=== PATIENT | female | born 1985 | race Caucasian/White ===

== ENCOUNTER 2019-06-28 06:19 | Inpatient (IN) | payer OTHER ==
[2019-06-28] MEDS ORDERED: TERBUTALINE 1 MG/ML VIAL SQ PRN (06:27)
[2019-06-28] MEDS ORDERED: OXYTOCIN 10 UNIT/ML 1 ML VIAL IM PRN (06:27)
[2019-06-28] MEDS ORDERED: LIDOCAINE 0.5% (PF) 5 MG/ML (50 ML SDV) SQ PRN (06:27)
[2019-06-28] MEDS ORDERED: PENICILLIN G POTASSIUM 5,000,000 UNIT in DEXTROSE 5% IN WATER 100 ML IVPB STA ×2 (06:27)
[2019-06-28] MEDS ORDERED: METHYLERGONOVINE 0.2 MG/ML 1 ML AMP IM PRN (06:27)
[2019-06-28] MEDS ORDERED: CARBOPROST TROMETHAMINE 250 MCG/ML 1 ML AMP IM PRN (06:27)
[2019-06-28] MEDS: LACTATED RINGERS 1,000 ML IV SCH ×2 (06:29→12:40)
[2019-06-28 06:35] VITALS: BMI 29.1
[2019-06-28 06:41] LABS: Basophils # (A) 0.2 k/uL (0-0.2); Basophils % (A) 1 %; Eosinophils # (A) 0.2 k/uL (0-0.7); Eosinophils % (A) 1 %; HCT 36.9 % (34.0-46.0); HGB 12.9 gm/dL (11.4-16.0); Lymphocytes # (A) 1.8 k/uL (1.0-4.8); Lymphocytes % (A) 12 %; MCH 31.9 pg (25.0-35.0); Mean Platelet Volume 6.9; Monocytes # (A) 0.8 k/uL (0-1.0); Monocytes % (A) 5 %; Neutrophils % (A) 78 %; Platelet Count 295 k/uL (150-450); RBC 4.06 m/uL (3.80-5.40); RDW 14.6 % (11.5-15.5); WBC 15.5 k/uL (3.8-10.6)
[2019-06-28] MEDS: OXYTOCIN 30 UNITS/500 ML NS 30 UNIT in SALINE 1 500ML.BAG IV SCH (06:58)
[2019-06-28] MEDS: PENICILLIN G POTASSIUM 2,500,000 UNIT in DEXTROSE 5% IN WATER 100 ML IVPB SCH ×4 (11:05→15:57)
--- NOTE | 2019-06-28 12:30 | P.HPOB ---
History of Present Illness H&P Date: 06/28/19 This is a 34-year-old white female 1 para 0 EDC was 06/25/2019 at 40-3/7 weeks' gestation. Patient presented this morning for induction for postdates with reasonably favorable cervix. Fetus is been active throughout the . She denied fluid leakage or vaginal bleeding. Past medical history is significant for anxiety. Past surgical history is negative. Current medications vitamins daily, Claritin 10 mg daily as needed. Family history significant for hypertension and diabetes. Social history patient is , she has never been a smoker, she works at a local [employer]. history blood type B positive, rubella status immune. VDRL testing, ur ine culture, hepatitis B surface antigen, HIV testing, gonorrhea and chlamydia cultures all negative. One-hour Glucola 110, group B strep cultures positive. On exam this is a pleasant white female, 5 foot 7 inches, 186 pounds, blood pressure 128/77 on admission. Vital signs are stable and she is afebrile. General physical exam is within normal limits. Cervix on admission is 3 cm dilated, 70% effaced, -2 station, vertex presentation, soft, slightly posterior. Artificial amniorrhexis reveals light meconium-stained fluid. Penicillin G prophylaxis has already been instituted. heart rate is consistent with reactive NST. Impression: 40-3/7 weeks intrauterine , meconium-stained fluid, positive group B strep cultures. Here for induction of labor. Plan: Continue penicillin G prophylaxis per hospital protocol. Continue oxytocin augmentation per hospital protocol. Continue close maternal and surveillance. Analgesic options have been reviewed with the patient. A nticipate normal spontaneous vaginal delivery. Review of Systems Constitutional: Reports as per HPI Past Medical History Past Medical History: No Reported History History of Any Multi-Drug Resistant Organisms: None Reported Past Surgical History: No Surgical Hx Reported Past Anesthesia/Blood Transfusion Reactions: No Reported Reaction Past Psychological History: No Psychological Hx Reported, Anxiety Smoking Status: Never smoker - Past Family History Father Family Medical History: No Reported History Medications and Allergies Home Medications Medication Instructions Recorded Confirmed Type 78/Iron/Folate 1/Dha 1 tab PO ONCE 06/28/19 06/28/19 History [Prenate Dha Softgel] Allergies Allergy/AdvReac Type Severity Reaction Status Date / Time No Known Allergies Allergy Verified 06/28/19 06:26 Exam Vital Signs Temp Pulse Resp BP Pulse Ox 06/28/19 06:24 97.8 F 111 H 16 128/77 98 Intake and Output 06/27/19 06/28/19 06/28/19 22:59 06:59 14:59 Other: Weight 84.368 kg See dictation under HPI please Results Result Diagrams: 06/28/19 06:35 Abnormal Lab Results - Last 24 Hours (Table) 06/28/19 Range/Units 06:35 WBC 15.5 H (3.8-10.6) k/uL Neutrophils # 12.0 H (1.3-7.7) k/uL Assessment and Plan Assessment: 40-3/7 weeks intrauterine , meconium-stained fluid, positive group B strep cultures. Here for elective induction of labor. Plan: Continue penicillin G per hospital protocol. Continue oxytocin per hospital protocol. Close maternal and surveillance. Anticipating normal spontaneous vaginal delivery. Time with Patient: Less than 30
[2019-06-28] MEDS ORDERED: ROPIVACAINE 100 MG, fentaNYL (PF) 200 MCG in SODIUM CHLORIDE 0.9% 76 ML EPIDURAL ONE (13:16)
[2019-06-28] MEDS ORDERED: CITRIC ACID-SODIUM CITRATE 15 ML CUP PO ONE (17:37)
[2019-06-28] MEDS ORDERED: PHENYLEPHRINE-0.9% NACL SYG 1 MG/10 ML SYRINGE ONE (17:47)
[2019-06-28] MEDS ORDERED: OXYTOCIN 10 UNIT/ML 1 ML VIAL ONE (17:47)
[2019-06-28] MEDS ORDERED: ONDANSETRON 4 MG/2 ML VIAL ONE (17:47)
[2019-06-28] MEDS ORDERED: KETOROLAC 30 MG/ML 1 ML VIAL ONE (17:47)
[2019-06-28] MEDS ORDERED: NALBUPHINE 10 MG/ML (1 ML AMP) ONE (17:47)
[2019-06-28] MEDS ORDERED: MORPHINE SULFATE (PF) 0.3 MG/0.3 ML SYR ONE (17:47)
[2019-06-28] MEDS ORDERED: KETOROLAC 30 MG/ML 1 ML VIAL IVP PRN (18:34)
--- NOTE | 2019-06-28 18:34 | P.OP ---
Date of Procedure: 06/28/19 Preoperative Diagnosis: Arrest of dilatation and descent, 40-3/7 weeks' gestation, meconium-stained fluid Postoperative Diagnosis: Liveborn female , right occiput transverse position Procedure(s) Performed: Primary low transverse section Anesthesia: epidural Surgeon: Meseret Tavares Lead Care Manager #1: Germán Araya Estimated Blood Loss (ml): 600 IV fluids (ml): 1,500 Urine output (ml): 300 Pathology: none sent Condition: stable Disposition: PACU Operative Findings: Liveborn female , 8 lbs. 2 oz., 3690 g, right occiput transverse Description of Procedure: Patient is brought to the operating suite where the previously placed epidural analgesia is topped off. She's placed in the dorsal supine position with left lateral uterine displacement. Colon catheter placed to direct drainage. The appropriate timeout is performed to assure proper patient and procedural identification. 2 g of Ancef are given. The abdomen is prepped and draped in usual sterile fashion. The analgesia is checked and noted to be adequate. A low transverse skin incision is made in this is carried down through the subcuticular tissue which is approximately 4 cm deep. Fascia is isolated, scored, and extended bilaterally with curved Barney scissors. Peritoneum is next identified and incised, there is no bowel or bladder involvement. Bladder blade is placed over the dome of the bladder and at all times bladder is Well from the operative field. A low transverse uterine incision is made in this is carried down through the myometrium. It is extended bluntly. 's head is delivered easily in the right occiput transverse position. There is no nuchal cord noted. Shoulders are gently delivered in the patient is officially delivered of a liveborn female at 1803 hrs. Umbilical cord is doubly clamped and ligated, she is handed to waiting nurses for evaluation where scores of 9 and 9 at one and 5 minutes respectively are given. Placentas delivered manually, it is inspected and noted to be intact with trivascular cord at 1804 hrs. Uterus is then massaged, and swept clean with a sterile sponge to avoid any retained products of conception. It is externalized. The bladder blade is placed over the dome of the bladder. Uterus is closed with a running locking stitch of 0 Vicryl suture. A second stitch is placed over the top in an imbricated fashion, again using 0 Vicryl suture. Reapproximation and hemostasis are excellent. Suction with guard is used to suction remaining fluid and blood from posterior to the uterus. Uterus is gently placed back into the abdominal cavity. Bilateral gutters are inspected and cleaned. Peritoneum is allowed to close by secondary intention. Fascia is closed in a running stitch of 0 Vicryl with over ligation in the midline. Subcutaneous tissue is irrigated, noted to be clean and dry. It is reapproximated with 3-0 Vicryl in a running manner. 4-0 undyed Monocryl issues for final skin closure. All sponge needle and enhancement counts are correct at the end of the procedure. Total estimated blood loss 600 mL's. Infant weighs 8 lbs. 2 oz. or 3690 g. She is brought back to the recovery room in stable condition with blood pressure 100/53, pulse 80.
[2019-06-29 06:21] LABS: Basophils # (A) 0.1 k/uL (0-0.2); Basophils % (A) 0 %; Eosinophils # (A) 0.1 k/uL (0-0.7); Eosinophils % (A) 0 %; HCT 34.2 % (34.0-46.0); HGB 11.6 gm/dL (11.4-16.0); Lymphocytes # (A) 1.6 k/uL (1.0-4.8); Lymphocytes % (A) 9 %; MCV 91.4 fL (80.0-100.0); Mean Platelet Volume 7.2; Monocytes % (A) 6 %; Neutrophils # (A) 14.3 k/uL (1.3-7.7); Neutrophils % (A) 83 %; Platelet Count 257 k/uL (150-450); RBC 3.75 m/uL (3.80-5.40); RDW 14.4 % (11.5-15.5); WBC 17.4 k/uL (3.8-10.6)
--- NOTE | 2019-06-29 07:38 | P.PN ---
Subjective Progress Note Date: 06/29/19 Principal diagnosis: Postoperative day #1 Slept well. Minimal lochia rubra. Pain well controlled. Positive flatus Objective - Vital Signs Vital signs: Vital Signs Temp 98.1 F 06/29/19 04:00 Pulse 87 06/29/19 04:00 Resp 16 06/29/19 04:00 BP 116/81 06/29/19 04:00 Pulse Ox 98 06/29/19 04:00 Intake & Output 06/28/19 06/29/19 06/29/19 18:59 06:59 18:59 Output Total 500 Balance -500 Output: Urine 500 Other: Voiding Method Indwelling Catheter - Constitutional General appearance: Present: average body habitus, cooperative - EENT Eyes: Present: PERRLA ENT: Present: hearing grossly normal - Neck Neck: Present: normal ROM - Respiratory Respiratory: bilateral: CTA - Cardiovascular Rhythm: regular - Gastrointestinal Gastrointestinal Comment(s): Incision clean and dry, intact, Steri-Strips applied. Fundus firm, midline, symmetric, 18 week size. General gastrointestinal: Present: normal bowel sounds - Integumentary Integumentary: Present: normal - Neurologic Neurologic: Present: CNII-XII intact - Musculoskeletal Musculoskeletal: Present: gait normal, strength equal bilaterally - Psychiatric Psychiatric: Present: A&O x's 3, appropriate affect, intact judgment & insight - Labs CBC & Chem 7: 06/29/19 05:54 Labs: Abnormal Lab Results - Last 24 Hours (Table) 06/29/19 Range/Units 05:54 WBC 17.4 H (3.8-10.6) k/uL RBC 3.75 L (3.80-5.40) m/uL Neutrophils # 14.3 H (1.3-7.7) k/uL Assessment and Plan Assessment: Postoperative day #1, doing well. Plan: Continue care. Likely discharge home tomorrow. Advanced diet and activity this morning. Time with Patient: Less than 30
--- NOTE | 2019-06-29 07:50 | P.PN ---
Progress Note - Text Progress Note Date: 06/29/19 Patient is without complaints. Pain controlled. Denies pruritis or headache. VSS Back - puncture site clean and dry A/P POD#1 s/p with epidural duramorph - doing well
[2019-06-29] MEDS ORDERED: KETOROLAC 30 MG/ML 1 ML VIAL IM SCH (09:00)
[2019-06-29] MEDS ORDERED: KETOROLAC 30 MG/ML 1 ML VIAL IVP PRN (10:51)
[2019-06-29] MEDS: IBUPROFEN 600 MG TAB PO PRN (20:47)
[2019-06-29] MEDS: PENICILLIN G POTASSIUM 2,500,000 UNIT in DEXTROSE 5% IN WATER 100 ML IVPB SCH ×2 (21:38)
[2019-06-29] MEDS: OXYTOCIN 30 UNITS/500 ML NS 30 UNIT in SALINE 1 500ML.BAG IV SCH (21:38)
[2019-06-29] MEDS: LACTATED RINGERS 1,000 ML IV SCH (21:38)
[2019-06-30] MEDS: IBUPROFEN 600 MG TAB PO PRN ×2 (03:46→11:31)
[2019-06-30] MEDS: ACETAMINOPHEN TAB 325 MG TAB PO PRN ×2 (08:38→15:30)
--- NOTE | 2019-06-30 08:50 | P.DS ---
Providers Date of admission: 06/28/19 06:19 Expected date of discharge: 06/30/19 Attending physician: Meseret Tavares Primary care physician: Stated None - Discharge Diagnosis(es) (1) S/P section Current Visit: Yes Status: Acute Hospital Course: The patient is a 34-year-old 1 para 0 admitted at 40-3/7 weeks for postdates induction of labor. She had had an uncomplicated and group B strep status is positive. On labor and delivery, all signs reassuring. Antibody prophylaxis was started along with Pitocin augmentation and she und erwent artificial rupture of membranes for clear fluid. She made progress to approximately 5-6 cm throughout the day to the early afternoon at which time she arrested further dilation and descent. After several hours with no change, she was taken the operating room where she was delivered of a viable 8 lbs. 2 oz. baby girl with Apgars of 9 at 1 minute and 9 at 5 minutes. Her course and postoperative course were unremarkable with vital signs remained stable and her temperature was afebrile throughout. She was deemed stable for discharge on postoperative day #2 was discharged home to follow-up in the office in 2 weeks for an incision check and 6 weeks routinely. Discharge medications included [id number] analgesic pain medications as well as continued vitamins as she has opted to breast-feed. She otherwise was provided with a prescription for Tylenol 3, 1-2 by mouth every 6 hours when necessary pain, #20 dispensed. Maternal blood type is B+ and rubella status is immune. Discharge hemoglobin and hematocrit were 11.6 and 34.2 respectively. Procedures: #1. Antibiotic prophylaxis #2. Pitocin induction #3. Artificial rupture of membranes #4. Epidural analgesia #5. Primary low-transverse section Patient Condition at Discharge: Stable Plan - Discharge Summary New Discharge Prescriptions: No Action 78/Iron/Folate 1/Dha [Prenate Dha Softgel] 1 tab PO ONCE Discharge Medication List 78/Iron/Folate 1/Dha [Prenate Dha Softgel] 1 tab PO ONCE 06/28/19 [History] Follow up Appointment(s)/Referral(s): Meseret Tavares MD [STAFF PHYSICIAN] - 2 Weeks Discharge Disposition: HOME SELF-CARE
[2019-06-30] MEDS ORDERED: SENNOSIDES-DOCUSATE SODIUM 1 EACH TAB PO SCH (09:00)
[2019-06-30 09:03] VITALS: RESP 16
[2019-06-30 16:36] VITALS: BP 132/76; PULSE 60; TEMP 98
== END 2019-06-30 16:05 | disposition home or self-care (01) | DRG 788 ==
LOC: 4FBP 06:19
PROVIDERS: ADMIT Obstetrics & Gynecology; ATTEND Obstetrics & Gynecology
PROC: 3E033VJ Introduction of Other Hormone into Peripheral Vein, Percutaneous Approach (ICD-10-PCS; 2019-06-28)
PROC: 00HU33Z Insertion of Infusion Device into Spinal Canal, Percutaneous Approach (ICD-10-PCS; 2019-06-28)
PROC: 3E0R3BZ Introduction of Anesthetic Agent into Spinal Canal, Percutaneous Approach (ICD-10-PCS; 2019-06-28)
PROC: 10D00Z1 Extraction of Products of Conception, Low, Open Approach (ICD-10-PCS; principal; 2019-06-28 17:58)
DX: O48.0 Post-term pregnancy (principal); O62.0 Primary inadequate contractions; O77.0 Labor and delivery complicated by meconium in amniotic fluid; Z37.0 Single live birth; Z3A.40 40 weeks gestation of pregnancy; O99.824 Streptococcus B carrier state complicating childbirth; Z79.899 Other long term (current) drug therapy; Z86.59 Personal history of other mental and behavioral disorders; Z82.49 Family history of ischemic heart disease and other diseases of the circulatory system; Z83.3 Family history of diabetes mellitus
CPT/HCPCS: 85025; 86850; 86900; 86901